=== PATIENT | male | born 1980 | race Caucasian/White ===

== ENCOUNTER 2020-12-07 00:04 | Emergency (ER) | payer SELFPAY ==
[~2020-12-07] VITALS: Ht 182.9 cm; Wt 81.6 kg
[2020-12-07] MEDS ORDERED: SODIUM CHLORIDE 0.9% 1000ML 1,000 ML IV STA (00:20)
[2020-12-07] MEDS ORDERED: OMEPRAZOLE40 MG PO (00:29)
[2020-12-07] MEDS ORDERED: ONDANSETRON HCL INJ 2MG/ML 2ML 2 MG/ML VIAL IV ONE (00:30)
[2020-12-07] MEDS ORDERED: ONDANSETRON HCL INJ 2MG/ML 2ML 2 MG/ML VIAL ONE (00:36)
[2020-12-07] MEDS ORDERED: SODIUM CHLORIDE 0.9% 1000ML 1,000 ML ONE (00:36)
== END 2020-12-07 01:06 | disposition home or self-care (01) ==
LOC: FSED 00:25
DX: K29.21 Alcoholic gastritis with bleeding (principal)
CPT/HCPCS: 80053; 85025; 99283; C9113; J2405; J7030